=== PATIENT | female | born 1945 | race Caucasian/White ===

== ENCOUNTER → 2020-03-29 | Outpatient (CLI) | payer MEDICARE, BC ==
--- NOTE | 2020-03-31 16:55 | RAD ---
EXAMINATION: MG BILAT SCREEN+WARREN CLINICAL HISTORY: Routine screening, history of benign biopsy on the right TECHNIQUE: Digital craniocaudal and mediolateral oblique views of the bilateral breasts obtained with 3-D tomosynthesis. COMPARISON: Scattered BREAST COMPOSITION: 12/16/2018, 12/12/2017, 12/11/2016 FINDINGS: No evidence of suspicious mass, calcifications, or areas of architectural distortion. IMPRESSION: No mammographic evidence of malignancy. BI-RADS ASSESSMENT: Category 1: Negative RECOMMENDATION: Return for routine bilateral screening mammogram in one year. PQRS compliance statement - Patient information was entered into a reminder system with a target due date for the next mammogram. "Our facility is accredited by the [employer] Mammography Program." Electronically signed by: Ever Pate DO (03/31/2020 4:53 PM) [id number]
== END ==
LOC: MAMMO 16:05
PROVIDERS: ATTEND Family Medicine
DX: Z12.31 Encounter for screening mammogram for malignant neoplasm of breast (principal)
CPT/HCPCS: 77063; 77067

== ENCOUNTER 2020-05-09 07:59 | Emergency (ER) | payer MEDICARE, BC ==
[~2020-05-09] VITALS: Ht 165.1 cm; Wt 64.0 kg
[2020-05-09 08:00] VITALS: BP 142/76
[2020-05-09] MEDS ORDERED: IBUPROFEN 400 MG TABLET. PO ONE (08:15)
--- NOTE | 2020-05-09 08:28 | RAD ---
XR KNEE 3 VIEWS_RT 05/09/2020 8:15 AM INDICATION: Injury going up steps COMPARISON: None available. TECHNIQUE: 3 views of the right knee are provided. FINDINGS/ IMPRESSION: No significant knee joint effusion, although evaluation is partly limited due to positioning. Mild medial femorotibial and patellofemoral joint space narrowing with marginal osteophyte ptosis com patible with mild osteophytosis. Mild to moderate lateral femorotibial joint space narrowing with mar ginal osteophytosis compatible with mild to moderate osteoarthrosis. No acute fracture or dislocation. Bone mineralization is within normal limits. No significant soft ti ssue abnormalities visualized. Electronically signed by: Reba Rondon MD (05/09/2020 8:26 AM) [id number]
--- NOTE | 2020-05-09 09:06 | PHYS DOC ---
General Adult EDM: Chief Complaint: KNEE INJURY HPI: HPI: 74-year-old female Reports experiencing nausea all day yesterday, no vomiting or diarrhea. Request prescription for antinausea medicine. Review of Systems: Review of Systems: Constitutional: Denies fever or chills Eyes: Denies change in visual acuity HENT: Denies nasal congestion or sore throat Respiratory: Denies cough or shortness of breath Cardiovascular: Denies chest pain or edema GI: Denies abdominal pain, nausea, vomiting, bloody stools or diarrhea : Denies dysuria Musculoskeletal: Denies back pain or joint pain Integument: Denies rash Neurologic: Denies headache, focal weakness or sensory changes Endocrine: Denies polyuria or polydipsia Lymphatic: Denies swollen glands Psychiatric: Denies depression or anxiety Current Medications: Current Meds: Current Medications Medications (Trade) Dose Ordered Sig/Devin Start Time Stop Time Status Last Admin Dose Admin Ibuprofen (Motrin) 400 mg 1X ONCE 05/09/20 08:15 05/09/20 08:30 DC Allergies: Allergies: Allergies Coded Allergies Type Severity Reaction Last Updated Verified Penicillins Allergy Unknown 05/09/20 Yes Physical Exam: PE: Constitutional: Well developed, well nourished, no acute distress, non-toxic appearance. HENT: Normocephalic, atraumatic, Eyes: EOMI, conjunctiva normal, no discharge. Neck: Normal range of motion, supple, Cardiovascular: S1/2 present, regular rhythm Lungs & Thorax: Speaking in full sentences, bilateral equal chest rise, no tachypnea or increased work of breathing Abdomen: soft, no tenderness, Skin: Warm, dry, no erythema, no rash. [] Back: No tenderness, no CVA tenderness. [] Extremities: No tenderness, no cyanosis, no lower extremity edema Neurologic: Alert and oriented X 3, normal motor function, normal sensory function, no focal deficits noted. [] Psychologic: Affect normal, judgement normal, mood normal. [] EKG: EKG: [] Radiology/Procedures: Radiology/Procedures: IMAGING REPORT Signed PATIENT: LUCIA LOPES ACCOUNT: [id number] : 1945 LOCATION: ER AGE: 74 SEX: F EXAM STATUS: REG ER ORD. PHYSICIAN: RAE RAMIRES DO REASON: Injury going up step 2 days ago, right knee pain PROCEDURE: KNEE RIGHT 3V XR KNEE 3 VIEWS_RT 05/09/2020 8:15 AM INDICATION: Injury going up steps COMPARISON: None available. TECHNIQUE: 3 views of the right knee are provided. FINDINGS/ IMPRESSION: No significant knee joint effusion, although evaluation is partly limited due to positioning. Mild medial femorotibial and patellofemoral joint space narrowing with marginal osteophyte ptosis compatible with mild osteophytosis. Mild to moderate lateral femorotibial joint space narrowing with marginal osteophytosis compatible with mild to moderate osteoarthrosis. No acute fracture or dislocation. Bone mineralization is within normal limits. No significant soft tissue abnormalities visualized. Electronically signed by: Tarun Chopra MD (05/09/2020 8:26 AM) [id number] DICTATED AND SIGNED BY: TARUN CHOPRA MD DATE: 05/09/20 0823 CC: RAE RAMIRES DO; CHARAN GUPTA ~MTH0 0 Heart Score: Risk Factors: Risk Factors: DM, Current or recent (<one month) smoker, HTN, HLP, family history of CAD, obesity. Risk Scores: Score 0 - 3: 2.5% MACE over next 6 weeks - Discharge Home Score 4 - 6: 20.3% MACE over next 6 weeks - Admit for Clinical Observation Score 7 - 10: 72.7% MACE over next 6 weeks - Early Invasive Strategies Course & Med Decision Making: Course & Med Decision Making Pertinent Labs and Imaging studies reviewed. (See chart for details) RICE instructions. Will discharge home with strict ED return precautions were given for neurologic deficits, severe pain skin color changes. Encouraged urgent outpatient follow-up with PMD and orthopedic surgery if pain persists more than 2 weeks. Life-threatening processes were considered but are low suspicion at this time, given history, physical exam and ED workup. Pt was educated on all prescription medications and adverse effects. All patient's questions were answered and pt was stable at time of discharge. Life/limb-threatening differential includes but is not limited to, trauma (fracture, dislocation, laceration, compartment syndrome, tendon or ligament injury), neurovascular injury or deficit, infection (osteomyelitis, abscess, cellulitis, septic arthritis, necrotizing fasciitis), deep vein thrombosis, renal/cardiac/liver disease, medication adverse effect, lymphedema/anasarca, vascular insufficiency or malignancy, I spoken with the patient and her caregivers. I explained the patient's condition, diagnoses and treatment plan based on the information available to me at this time. I have answered the patient and her caregiver's questions and addressed any concerns. The patient and her caregivers have a good understandi ng of patient's diagnosis, condition and treatment plan as can be expected at this point. Vital signs have been stable. Patient's condition is stable and appropriate for discharge from the emergency department. Patient will pursue further outpatient evaluation with primary care physician or other designated or consulting physician as outlined in the discharge instructions. The patient and/or caregivers are agreeable to this plan of care and follow-up instructions have been explained in detail. The patient and/or caregivers have received these instructions in written form and have expressed an understanding of the discharge instructions. The patient and/or caregivers are aware that any significant change of condition or worsening of symptoms should prompt immediate return to this or the closest emergency department or call to [id number] Disclaimer: Brook Disclaimer: This electronic medical record was generated, in whole or in part, using a voice recognition dictation system. Departure Departure: Impression: Primary Impression: Pain in right wright Disposition: 01 DC HOME SELF CARE/HOMELESS Condition: STABLE Referrals: CHARAN GUPTA (PCP) Patient Instructions: Knee Pain, Patellar Tendon Tear/Disruption with Rehab- [facility], RICE - Routine Care for Injuries, Wright Splints Additional Instructions: FOLLOW UP WITH ORTHOPEDICS: [facility] [address] [facility], [address] [address] EMERGENCY DEPARTMENT GENERAL DISCHARGE INSTRUCTIONS Thank you for coming to [facility] (ED) today and trusting us with you care. We trust that you had a positivie experience in our Emergency Department. If you wish to speak to the department management, you may call the director at [phone]. YOUR FOLLOW UP INSTRUCTIONS ARE FOLLOWS: 1. Do you have a private Doctor? If you do not have a private doctor, please ask for a resource list of physicians or clinics that may be able to assist you with follow up care. 2. The Emergency Physician has interpreted your x-rays. The X-Ray specialist will also review them. If there is a change in the findings, you will be notified in 48 hours when at all possible. 3. A lab test or culture has been done, your results will be reviewed and you will be notified if you need a change in treatment. ADDITIONAL INSTRUCTIONS AND INFORMATION: 1. Your care today has been supervised by a physician who is specially trained in emergency care. Many problems require more than one evaluation for a complete diagnosis and treatment. We recommend that you schedule your follow up appointment as recommended to ensure complete treatment of you illness or injury. If you are unable to obtain follow up care and continue to have a problem, or if your condition worsens, we recommend that you return to the ED. 2. We are not able to safely determine your condition over the phone nor are we able to give sound medical advice over the phone. For these safety reasons, if you call for medical advice we will ask you to come to the ED for further evaluation. 3. If you have any questions regarding these discharge instructions please call the ED at [phone]. SAFETY INFORMATION: In the interest of safety, wellness, and injury prevention; we encourage you to wear your sealbelt, if you smoke; quite smoking, and we encourage family to use a protective helmet for bicycling and other sporting events that present an increased risk for head injury. IF YOUR SYMPTOMS WORSEN OR NEW SYMPTOMS DEVELOP, OR YOU HAVE CONCERNS ABOUT YOUR CONDITION; OR IF YOUR CONDITION WORSENS WHILE YOU ARE WAITING FOR YOUR FOLLOW UP APPOINTMENT; EITHER CONTACT YOUR PRIMARY CARE DOCTOR, THE PHYSICIAN WHOSE NAME AND NUMBER YOU WERE GIVEN, OR RETURN TO THE ED IMMEDIATELY. Scripts Ondansetron (ONDANSETRON ODT) 4 Mg Tab.rapdis 4 MG PO Q6HRS for Nausea/Vomiting, #15 TAB Prov: RAE RAMIRES DO 05/09/20 RAE RAMIRES DO May 09, 2020 09:06
[2020-05-09] MEDS ORDERED: ONDA4TAB12 PO (09:12)
== END 2020-05-09 09:15 | disposition home or self-care (01) ==
LOC: ER 07:59
DX: M79.661 Pain in right lower leg (principal); R11.0 Nausea; Z88.0 Allergy status to penicillin
CPT/HCPCS: 73562; 99283

== ENCOUNTER → 2021-04-05 | Outpatient (CLI) | payer MEDICARE, BC ==
[~2021-04-05] MED LIST: ONDA4TAB12 PO
--- NOTE | 2021-04-05 16:39 | RAD ---
BILATERAL SCREENING MAMMOGRAM History: Routine screening. Comparison: 03/29/2020 Technique: Routine 2D and 3D tomosynthesis digital mammogram views were obtained bilaterally. Interpr etation was assisted with the use of computer-aided detection. Findings: Breast Tissue Density A : The breasts are almost entirely fatty. There are no dominant masses, suspicious microcalcifications, or architectural distortion. IMPRESSION: No mammographic evidence of malignancy. Recommend routine screening mammography in one year. BI-RADS category 1: Negative. Patient information is entered into the reminder system with a target due date for the next screening mammogram. "Our facility is accredited by the [employer] Mammography Program." Electronically signed by: NIMESH VILLALPANDO MD (04/05/2021 4:36 PM) [id number]
== END ==
LOC: MAMMO 13:43
PROVIDERS: ATTEND Family Medicine
DX: Z12.31 Encounter for screening mammogram for malignant neoplasm of breast (principal)
CPT/HCPCS: 77063; 77067